=== PATIENT | female | born 1980 | race Caucasian/White ===

== ENCOUNTER 2017-03-19 10:56 | Emergency (ER) | payer BC ==
[~2017-03-19] VITALS: Ht 162.6 cm; Wt 78.6 kg
[~2017-03-19 10:56] MED LIST: CHOL100027 PO
[2017-03-19 11:07] VITALS: TEMP 36.7; Ht 162.6 cm; Wt 78.6 kg
--- NOTE | 2017-03-19 11:18 | EMERGENCY ROOM VISIT NOTE ---
History Report prepared by Ligia: Alon Levin Under the Supervision of: Dr. Bud Estrella M.D. First contact with patient: 11:00 Stated Complaint: NEAR SYNCOPE History of Present Illness The patient is a 37 year old female who presents to the Emergency Room with complaints of a sudden near syncopal episode occurring prior to arrival. The patient states that she was driving, and her heart started to race, and she felt very lightheaded. She states that she pulled over, and got an ambulance. She states that her heart rate was in the 150s, and she had high blood pressure. The patient states that she gets ocular migraines, and the aura from the migraine makes her anxious, and she gets slurred speech. Additionally, she was having PVCs with the anxiety. She states that this anxiety makes her heart race. She states that yesterday she was not thinking correctly, and this morning she was studying, and she started to feel like she was "crawling out of her skin". The patient denies any shortness of breath, nausea, vomiting, thyroid problems, trauma or injury, numbness, weakness, or headache. She additionally denies any recent travelling, swelling in legs, and a history of blood clots. She states that she does not smoke, and she occasionally drinks alcohol. The patient states that she took Claritin today because she felt like she had a lump in her throat. Source of History: patient, spouse/significant other Onset: prior to arrival Position: other (global) Quality: other (near syncopal episode) Timing: other (sudden) Associated Symptoms: No SOB, No headache, No nausea, No numbness, No vomiting, No weakness Note: Associated symptoms: Fast heart rate Review of Systems See HPI for pertinent positives & negatives. A total of 10 systems reviewed and were otherwise negative. Past Medical & Surgical Medical Problems: (1) PVC (premature ventricular contraction) Surgical Problems: (1) History of appendectomy Old medical records were reviewed. Nurse's notes were reviewed and I agree with. Family History Diabetes mellitus Hypertension Kidney disease Kidney stones Social History Alcohol Use: occasionally Marital Status: Housing Status: lives with family Occupation Status: employed Current/Historical Medications No Active Prescriptions or Reported Meds Allergies Coded Allergies: Sulfa Drugs (Verified Allergy, Mild, 06/30/12) Physical Exam Vital Signs Date Time Temp Pulse Resp B/P Pulse Ox O2 Delivery O2 Flow Rate FiO2 03/19/17 13:54 57 16 116/71 99 03/19/17 13:01 53 16 122/83 98 Room Air 03/19/17 12:14 63 16 115/77 99 Room Air 03/19/17 12:09 58 03/19/17 11:07 36.7 92 18 161/92 92 Room Air Physical Exam General: Non-ill appearing, mildly anxious middle aged female in no acute distress. HEENT: Normal cephalic atraumatic. Pupils are equal round and reactive to light. Sclerae anicteric. Extraocular movements are intact. Oropharynx is pink with moist mucous membranes. No swelling of the mouth lips or tongue. Neck: Supple with a midline trachea. No meningeal signs or stiffness, no JVD or bruits. No Stridor. Chest: Clear to auscultation bilaterally. No wheezes or rhonchi. No increased work of breathing. Heart: regular rate and rhythm. Abdomen: Soft nontender, nondistended without rebound guarding or rigidity. Extremities: No cyanosis clubbing or edema. No calf tenderness or assymetry Spine/Back. Non tender to palpation. No CVA tenderness Skin: Good turgor without rashes. Neurologic exam: No tremor. Cranial nerves two through 12 are intact. Motor and sensation are intact and symmetrical throughout. Medical Decision & Procedures ER Provider Diagnostic Interpretation: X-ray results as stated below per interpretation by me and the radiologist: CHEST ONE VIEW PORTABLE HISTORY: Atypical CHEST PAIN COMPARISON: Chest 07/18/2012. FINDINGS: The lungs are clear. Cardiac silhouette is normal in size. No pleural effusions. No pneumothorax. IMPRESSION: No acute process. Electronically signed by: Ramana Roman M.D. 03/19/2017 12:39 PM Dictated Date/Time: 03/19/2017 12:38 PM Laboratory Results 03/19/17 11:55 Red Blood Count 4.59, Mean Corpuscular Volume 91.3, Mean Corpuscular Hemoglobin 32.0, Mean Corpuscular Hemoglobin Concent 35.1, Mean Platelet Volume 11.3, Neutrophils (%) (Auto) 62.8, Lymphocytes (%) (Auto) 28.5, Monocytes (%) (Auto) 6.4, Eosinophils (%) (Auto) 1.5, Basophils (%) (Auto) 0.5, Neutrophils # (Auto) 2.47, Lymphocytes # (Auto) 1.12, Monocytes # (Auto) 0.25, Eosinophils # (Auto) 0.06, Basophils # (Auto) 0.02 03/19/17 11:55 Test 03/19/17 11:55 03/19/17 12:03 03/19/17 12:50 White Blood Count 3.93 K/uL (4.8-10.8) Red Blood Count 4.59 M/uL (4.2-5.4) Hemoglobin 14.7 g/dL (12.0-16.0) Hematocrit 41.9 % (37-47) Mean Corpuscular Volume 91.3 fL (80-100) Mean Corpuscular Hemoglobin 32.0 pg (25-34) Mean Corpuscular Hemoglobin Concent 35.1 g/dl (32-36) Platelet Count 183 K/uL (130-400) Mean Platelet Volume 11.3 fL (7.4-10.4) Neutrophils (%) (Auto) 62.8 % Lymphocytes (%) (Auto) 28.5 % Monocytes (%) (Auto) 6.4 % Eosinophils (%) (Auto) 1.5 % Basophils (%) (Auto) 0.5 % Neutrophils # (Auto) 2.47 K/uL (1.4-6.5) Lymphocytes # (Auto) 1.12 K/uL (1.2-3.4) Monocytes # (Auto) 0.25 K/uL (0.11-0.59) Eosinophils # (Auto) 0.06 K/uL (0-0.5) Basophils # (Auto) 0.02 K/uL (0-0.2) RDW Standard Deviation 38.6 fL (36.4-46.3) RDW Coefficient of Variation 11.5 % (11.5-14.5) Immature Granulocyte % (Auto) 0.3 % Immature Granulocyte # (Auto) 0.01 K/uL (0.00-0.02) Anion Gap 9.0 mmol/L (3-11) Est Creatinine Clear Calc Drug Dose 90.0 ml/min Estimated GFR () 99.3 Estimated GFR (Non- 85.7 BUN/Creatinine Ratio 18.2 (10-20) Calcium Level 8.9 mg/dl (8.5-10.1) Total Bilirubin 0.5 mg/dl (0.2-1) Direct Bilirubin < 0.1 mg/dl (0-0.2) Aspartate Amino Transf (AST/SGOT) 15 U/L (15-37) Alanine Aminotransferase (ALT/SGPT) 19 U/L (12-78) Alkaline Phosphatase 43 U/L (45-117) Total Protein 7.6 gm/dl (6.4-8.2) Albumin 4.3 gm/dl (3.4-5.0) Lipase 151 U/L (73-393) Thyroid Stimulating Hormone (TSH) 2.480 uIu/ml (0.300-4.500) Bedside D-Dimer 320 ng/mlFEU (0-450) Bedside Troponin I 0.000 ng/ml (0-0.045) Human Chorionic Gonadotropin, Qual NEG (NEG) Laboratory studies as stated above per my review. Medications Administered Medications (Trade) Dose Ordered Sig/Emigdio Route Start Time Stop Time Status Last Admin Dose Admin Sodium Chloride (Nss 1000ml) 1,000 ml @ 999 mls/hr Q1H1M STAT IV 03/19/17 11:59 03/19/17 12:59 DC 03/19/17 12:15 999 MLS/HR ECG Indication: other (near syncope) Rate (beats per minute): 54 Rhythm: other (sinus with sinus arrhythmia) Findings: no acute ischemic change Comparison ECG Date: 06/30/12 Change: first degree AV block has resolved ED Course 1100: Past medical records reviewed. The patient was evaluated in room C2, and a complete history and physical examination were performed. 1159: Sodium Chloride 1000 ml @ 200 mls/hr IV, Sodium Chloride 1000 ml @ 999 mls /hr IV 1303: I reevaluated the patient, and she was feeling well, and she wants to go home. 1325: Upon reevaluation, the patient is feeling well. I discussed the results and treatment plan with her. She verbalized agreement of the treatment plan. The patient was discharged home. Medical Decision Differentials include, but are not limited to; arrhythmia, acute coronary syndrome, electrolyte or metabolic abnormality, anxiety, PE, thyroid disease This patient comes in as described above. She was placed in room C2. She is here for treatment and evaluation of a near syncopal episode. She felt her heart was racing. She's had this before. She feels better now and her heart is not racing. IV access established, EKG was obtained, chest x-ray, multiple blood testing was obtained. She was hydrated with IV. Normal saline she remained stable and improved while she was in the ER. EKG does not suggest acute coronary syndrome or arrhythmia. There is nothing to suggest preexcitation. D-dimer is within normal limits and a low pretest probability study makes PE highly unlikely. Chest x-ray is unremarkable does not suggest congestive heart failure, pneumonia, or pneumothorax. She's no acute electrode or metabolic abnormality. She has nothing to suggest thyroid disease. She is feeling good and would like to go home. I recommend she follow up with her regular doctor next 1-2 days for recheck and return to the ER if: Worsening of symptoms, symptoms, fever chills, any new problems or concerns. She is happy with the plan and discharged to home. Impression Primary Impression: Near syncope Additional Impression: Palpitations Scribe Attestation The scribe's documentation has been prepared under my direction and personally reviewed by me in its entirety. I confirm that the note above accurately reflects all work, treatment, procedures, and medical decision making performed by me. Departure Information Dispostion Home / Self-Care Prescriptions No Active Prescriptions or Reported Meds Referrals Huyen Escobar D.O. (PCP) Forms HOME CARE DOCUMENTATION FORM, IMPORTANT VISIT INFORMATION Patient Instructions [facility] Additional Instructions Rest. Drink plenty of fluids. Return if: Chest pain, shortness of breath, worsening symptoms, fever or chills , any new problems or concerns. Follow-up with your doctor for recheck in 1-2 days Problem Qualifiers
[2017-03-19] MEDS ORDERED: SODIUM CHLORIDE 0.9% 1000ML 1,000 ML IV ONE (11:59)
[2017-03-19] MEDS ORDERED: SODIUM CHLORIDE 0.9% 1000ML 1,000 ML IV STA (11:59)
[2017-03-19 12:27] LABS: BASO % 0.5 %; BASO ABS # 0.02 K/uL (0-0.2); COMPLETE YES; EOS % 1.5 %; HEMATOCRIT 41.9 % (37-47); IG% 0.3 %; LYMPH % 28.5 %; LYMPH ABS # 1.12 K/uL (1.2-3.4); MEAN CELL VOLUME 91.3 fL (80-100); MEAN CORPUSCULAR HGB CONC 35.1 g/dl (32-36); MEAN PLATELET VOLUME 11.3 fL (7.4-10.4); MONO % 6.4 %; NEUT % 62.8 %; PLATELET COUNT 183 K/uL (130-400); RED BLOOD COUNT 4.59 M/uL (4.2-5.4); WHITE BLOOD COUNT 3.93 K/uL (4.8-10.8)
--- NOTE | 2017-03-19 12:40 | DIAGNOSTIC IMAGING REPORT ---
CHEST ONE VIEW PORTABLE HISTORY: Atypical CHEST PAIN COMPARISON: Chest 07/18/2012. FINDINGS: The lungs are clear. Cardiac silhouette is normal in size. No pleural effusions. No pneumothorax. IMPRESSION: No acute process. Electronically signed by: Ramana Roman M.D. 03/19/2017 12:39 PM Dictated Date/Time: 03/19/2017 12:38 PM
[2017-03-19 12:56] LABS: ALT/SGPT 19 U/L (12-78); BLOOD UREA NITROGEN 16 mg/dl (7-18); BUN/CREATININE RATIO 18.2 (10-20); CALCIUM 8.9 mg/dl (8.5-10.1); CARBON DIOXIDE 29 mmol/L (21-32); CHLORIDE 107 mmol/L (98-107); CREATININE 0.86 mg/dl (0.60-1.20); GLUCOSE 91 mg/dl (70-99)
[2017-03-19 13:02] LABS: ALKALINE PHOSPHATASE 43 U/L (45-117)
[2017-03-19 13:12] LABS: POTASSIUM 4.2 mmol/L (3.5-5.1); SODIUM 145 mmol/L (136-145)
[2017-03-19 13:17] LABS: AST/SGOT 15 U/L (15-37)
[2017-03-19 13:20] LABS: PREG INTERNAL NEGATIVE QC NEG CLEAR BACKGROUND; PREG INTERNAL POSITIVE QC POS CONTROL LINE
[2017-03-19 13:54] VITALS: BP 116/71; PULSE 57; O2SAT 99
== END 2017-03-19 13:55 | disposition home or self-care (01) ==
LOC: EDBD 10:56 → C.EDC 10:59
DX: R55 Syncope and collapse (principal); R00.2 Palpitations; I49.3 Ventricular premature depolarization; Z83.3 Family history of diabetes mellitus; Z82.49 Family history of ischemic heart disease and other diseases of the circulatory system

== ENCOUNTER → 2018-02-21 | Outpatient (CLI) | payer OTHER ==
--- NOTE | 2018-02-21 14:53 | DIAGNOSTIC IMAGING REPORT ---
CHEST 2 VIEWS ROUTINE CLINICAL HISTORY: FEVER cough COMPARISON STUDY: 03/19/2017 FINDINGS: Infiltrate right base. Lungs otherwise appear clear. No significant cardiac enlargement. IMPRESSION: Infiltrate right base The above report was generated using voice recognition software. It may contain grammatical, syntax or spelling errors. Electronically signed by: Jeff Crockett M.D. 02/21/2018 2:52 PM Dictated Date/Time: 02/21/2018 2:51 PM
== END | disposition home or self-care (01) ==
LOC: C.RAD1850 14:14
PROVIDERS: ATTEND Family Medicine
DX: R50.9 Fever, unspecified (principal); R05 Cough